=== PATIENT | male | born 1975 | race Two or more races ===

== ENCOUNTER 2016-08-01 13:21 | Inpatient (IN) | payer OTHER ==
[~2016-08-01] VITALS: Ht 175.3 cm; Wt 108.5 kg
[2016-08-01] MEDS ORDERED: SODIUM CHLORIDE 0.9% 1,000 ML IV ONE (13:45)
[2016-08-01] MEDS ORDERED: ONDANSETRON HCL 4 MG/2 ML VIAL IV ONE (13:45)
[2016-08-01] MEDS ORDERED: MORPHINE SULFATE 4 MG/ML SYRG IV ONE (13:45)
[2016-08-01 14:27] LABS: Basophils # (auto) 0 uL; Basophils % (auto) 0.1 % (0.0-2.0); Eosinophils # (auto) 0.1 uL; Eosinophils % (auto) 0.8 % (0.0-7.0); Hematocrit 42.4 % (41.0-53.0); Hemoglobin 14.1 g/dL (13.5-17.5); Lymphocytes # (auto) 1.1 uL; Lymphocytes % (auto) 10.6 % (10.0-50.0); Mean Corpuscular Hemoglobin 27.7 pg (28.0-32.0); Mean Corpuscular Hgb Conc. 33.3 g/dL (32.0-36.0); Mean Platelet Volume 8.4 fL (7.4-10.4); Monocytes # (auto) 0.5 uL; Monocytes % (auto) 5.1 % (0.0-12.0); Neutrophils # (auto) 8.6 uL; Neutrophils % (auto) 83.4 % (37.0-80.0); Platelet Count (auto) 272 10^3/uL (140-450); Red Cell Distribution Width 15.2 % (11.6-16.0); White Blood Cell 10.3 10^3/uL (4.4-10.8)
[2016-08-01 14:41] LABS: INR 0.99 (0.9-1.15); Partial Thromboplastin Time 23.1 sec (22.64-33.71); Prothrombin Time 10.7 sec (9.37-12.3)
[2016-08-01 14:44] LABS: Albumin 3.7 g/dL (3.4-5.0); Alkaline Phosphatase 75 U/L (45-117); Anion Gap 8 (5-15); Aspartate Aminotransferase 12 U/L (15-37); BUN/Creatinine Ratio 12.6; Bilirubin, Total 0.4 mg/dL (0.2-1.0); Blood Urea Nitrogen 13 mg/dL (7-18); Calcium 9.1 mg/dL (8.5-10.1); Carbon Dioxide 27 mmol/L (21-32); Chloride 108 mmol/L (98-107); GFR African American 101 mL/min; GFR Non-African American 84 mL/min; Glucose 106 mg/dL (74-106); Potassium 4.1 mmol/L (3.5-5.1); Sodium 143 mmol/L (136-145); Total Protein 7.6 g/dL (6.4-8.2)
[2016-08-01 14:51] LABS: B-Type Natriuretic Peptide 13.65 pg/mL (0-100)
[2016-08-01 15:46] LABS: Temperature: 23.9 C (20.0-25.0)
[2016-08-01] MEDS ORDERED: ENOXAPARIN SOD 100 MG/1 ML SYRINGE SC ONE (16:15)
[2016-08-01] MEDS ORDERED: IOHEXOL 350 MG/ML 100ML IJ ONE (16:15)
[2016-08-01] MEDS ORDERED: LACTULOSE 20Gm/30ML SOLN PO PRN (16:30)
[2016-08-01] MEDS ORDERED: NITROGLYCERIN 0.4 MG SL TAB SL PRN (16:30)
[2016-08-01] MEDS ORDERED: LORazepam 0.5 MG TAB PO PRN (16:30)
[2016-08-01] MEDS ORDERED: TEMAZEPAM 15 MG CAP PO PRN (16:30)
[2016-08-01] MEDS ORDERED: ACETAMINOPHEN 500 MG TAB PO PRN (16:30)
[2016-08-01] MEDS ORDERED: PROCHLORPERAZINE EDISYLATE 5 MG/ML 2ML VIAL IV PRN (16:30)
[2016-08-01] MEDS ORDERED: MORPHINE SULF INJ 2 MG/ML SYRINGE 1ML IV PRN ×2 (16:30)
[2016-08-01] MEDS ORDERED: PANTOPRAZOLE 40 MG TAB PO ONE (16:45)
[2016-08-01] MEDS ORDERED: HYDR-531 PO (17:53)
[2016-08-01] MEDS ORDERED: PRAZ5CAP PO (17:53)
[2016-08-01] MEDS ORDERED: LAMO25TA2 PO (17:53)
[2016-08-01] MEDS ORDERED: SERT-135 PO (17:53)
[2016-08-01] MEDS ORDERED: LIDO1PAD55 EX (17:53)
[2016-08-01] MEDS ORDERED: LORA-653 PO (17:53)
[2016-08-01] MEDS: HYDROcodone-ACET 5/325MG TAB PO PRN (18:45)
[2016-08-01 22:00] VITALS: BP 127/82
[2016-08-01] MEDS: METOPROLOL TARTRATE 25 MG TAB PO SCH (22:00)
[2016-08-01] MEDS: PRAZOSIN HCL 1 MG CAP PO SCH (22:31)
[2016-08-01] MEDS: lamoTRIgine 25 MG TAB PO SCH (22:32)
[2016-08-01] MEDS: ATORVASTATIN 20 MG TAB PO SCH (22:32)
[2016-08-01] MEDS: SODIUM CHLORIDE 0.9% 1,000 ML IV SCH (22:38)
[2016-08-02 05:30] VITALS: BP 96/59
[2016-08-02] MEDS: SODIUM CHLORIDE 0.9% 1,000 ML IV SCH (05:45)
[2016-08-02 06:33] LABS: Albumin 3.3 g/dL (3.4-5.0); Alkaline Phosphatase 72 U/L (45-117); Anion Gap 8 (5-15); Aspartate Aminotransferase 16 U/L (15-37); BUN/Creatinine Ratio 11.8; Bilirubin, Total 0.3 mg/dL (0.2-1.0); Blood Urea Nitrogen 13 mg/dL (7-18); Calcium 8.4 mg/dL (8.5-10.1); Carbon Dioxide 29 mmol/L (21-32); Chloride 106 mmol/L (98-107); Cholesterol 180 mg/dL (< 200); GFR African American 94 mL/min; GFR Non-African American 78 mL/min; Glucose 128 mg/dL (74-106); HDL Cholesterol 31 mg/dL (40-59); LDL Cholesterol 127 mg/dL (< 100); Potassium 3.8 mmol/L (3.5-5.1); Sodium 143 mmol/L (136-145); Triglycerides 202 mg/dL (< 150)
[2016-08-02] MEDS ORDERED: IODIXANOL 320MG/ML 100ML BTL IV ONE (07:24)
[2016-08-02] MEDS ORDERED: LIDOCAINE 2%HCL (LOCAL ANESTH.) INJ 20ML MDV ONE (07:24)
[2016-08-02 08:00] VITALS: BP 109/57
[2016-08-02 09:00] VITALS: BP 109/57
[2016-08-02] MEDS: METOPROLOL TARTRATE 25 MG TAB PO SCH ×2 (10:00→21:38)
[2016-08-02] MEDS ORDERED: NITROGLYCERIN 0.2MG/HR TOPICAL PATCH TD SCH (10:00)
[2016-08-02] MEDS ORDERED: ENOXAPARIN SOD 40 MG/0.4 ML SYRINGE SC SCH (10:00)
[2016-08-02] MEDS ORDERED: ASPirin 81 mg TAB PO SCH (10:00)
[2016-08-02] MEDS: PANTOPRAZOLE 40 MG TAB PO SCH (10:21)
[2016-08-02 13:00] VITALS: BP 118/70
[2016-08-02] MEDS ORDERED: SERTRALINE HCL 50 MG TAB PO ONE (15:00)
[2016-08-02 18:00] VITALS: BP 122/75
[2016-08-02 21:36] VITALS: BP 118/71
[2016-08-02] MEDS: lamoTRIgine 25 MG TAB PO SCH (21:36)
[2016-08-02] MEDS: ATORVASTATIN 20 MG TAB PO SCH (21:36)
[2016-08-02] MEDS: HYDROcodone-ACET 5/325MG TAB PO PRN (21:37)
[2016-08-02] MEDS: PRAZOSIN HCL 1 MG CAP PO SCH (21:39)
[2016-08-03 04:41] VITALS: BP 111/68
[2016-08-03 08:00] VITALS: BP 118/71
[2016-08-03 09:00] VITALS: BP 106/73
[2016-08-03] MEDS: METOPROLOL TARTRATE 25 MG TAB PO SCH ×2 (10:00→21:48)
[2016-08-03] MEDS: PANTOPRAZOLE 40 MG TAB PO SCH (12:37)
[2016-08-03] MEDS: SERTRALINE HCL 50 MG TAB PO SCH (12:38)
[2016-08-03 13:09] VITALS: BP 110/75
[2016-08-03 17:08] VITALS: BP 120/85
[2016-08-03] MEDS: lamoTRIgine 25 MG TAB PO SCH (21:47)
[2016-08-03] MEDS: ATORVASTATIN 20 MG TAB PO SCH (21:47)
[2016-08-03] MEDS: PRAZOSIN HCL 1 MG CAP PO SCH (21:50)
[2016-08-03 22:00] VITALS: BP 126/79
[2016-08-04 05:40] VITALS: BP 112/69
[2016-08-04 08:00] VITALS: BP 119/77
[2016-08-04 09:05] VITALS: BP 107/67
[2016-08-04] MEDS: METOPROLOL TARTRATE 25 MG TAB PO SCH ×2 (10:00→21:49)
[2016-08-04] MEDS: SERTRALINE HCL 50 MG TAB PO SCH (10:25)
[2016-08-04] MEDS: PANTOPRAZOLE 40 MG TAB PO SCH (10:25)
[2016-08-04 13:07] VITALS: BP 95/60
[2016-08-04 17:00] VITALS: BP 119/85
[2016-08-04] MEDS: lamoTRIgine 25 MG TAB PO SCH (21:48)
[2016-08-04] MEDS: ATORVASTATIN 20 MG TAB PO SCH (21:49)
[2016-08-04 21:50] VITALS: BP 111/78
[2016-08-04] MEDS: PRAZOSIN HCL 1 MG CAP PO SCH (21:50)
[2016-08-05 05:16] VITALS: BP 115/58
[2016-08-05] MEDS ORDERED: IODIXANOL 320MG/ML 100ML BTL IV ONE (07:38)
[2016-08-05] MEDS ORDERED: LIDOCAINE 2%HCL (LOCAL ANESTH.) INJ 20ML MDV ONE (07:38)
[2016-08-05 08:00] VITALS: BP 112/66
[2016-08-05] MEDS ORDERED: SODIUM CHLORIDE 0.9% 1,000 ML IV SCH (08:45)
[2016-08-05 09:00] VITALS: BP 112/66
[2016-08-05] MEDS: SERTRALINE HCL 50 MG TAB PO SCH (10:00)
[2016-08-05] MEDS: METOPROLOL TARTRATE 25 MG TAB PO SCH ×2 (10:00→21:37)
[2016-08-05] MEDS: PANTOPRAZOLE 40 MG TAB PO SCH (10:00)
[2016-08-05] MEDS ORDERED: FLUMAZENIL 0.1 MG/ML INJ 10ML MDV IV ONE (11:30)
[2016-08-05] MEDS ORDERED: NALOXONE HCL 0.4 MG/ML VIAL IV ONE (11:30)
[2016-08-05] MEDS ORDERED: LIDOCAINE VISCOUS 2% 15ML UD MT PRN (11:30)
[2016-08-05] MEDS ORDERED: fentaNYL CITRATE 100 MCG/2 ML VL IV ONE (11:30)
[2016-08-05] MEDS ORDERED: BENZOCAINE (DENTAL) 20 % SPRAY 60ML MT ONE (11:30)
[2016-08-05] MEDS ORDERED: MIDAZOLAM HCL 5 MG/ML-1ML VIAL IV ONE (11:30)
[2016-08-05] MEDS ORDERED: MIDAZOLAM HCL 1MG/1ML-2 ML VIAL ONE (11:35)
[2016-08-05] MEDS: SODIUM CHLORIDE 0.9% 1,000 ML IV SCH ×2 (11:39→21:35)
[2016-08-05] MEDS ORDERED: EPTIFIBATIDE INJ (2MG/ML) 10ML VIAL IV ONE (12:17)
[2016-08-05] MEDS ORDERED: VERAPAMIL 2.5MG/ML INJ 2ML VIAL IV ONE (12:17)
[2016-08-05 14:00] VITALS: BP 114/68
[2016-08-05 17:00] VITALS: BP 105/69
[2016-08-05] MEDS: HYDROcodone-ACET 5/325MG TAB PO PRN (20:15)
[2016-08-05] MEDS: lamoTRIgine 25 MG TAB PO SCH (21:35)
[2016-08-05] MEDS: ATORVASTATIN 20 MG TAB PO SCH (21:36)
[2016-08-05] MEDS: PRAZOSIN HCL 1 MG CAP PO SCH (21:38)
[2016-08-05 21:43] VITALS: BP 120/67
[2016-08-06 04:45] VITALS: BP 108/74
[2016-08-06 08:00] VITALS: BP 108/69
[2016-08-06] MEDS ORDERED: guaiFENesin-DEXTROMETHORPHAN 5ML SYR PO PRN (09:00)
[2016-08-06 09:25] VITALS: BP 108/69
[2016-08-06 09:33] LABS: Basophils # (auto) 0 uL; Basophils % (auto) 0.6 % (0.0-2.0); Eosinophils # (auto) 0.2 uL; Eosinophils % (auto) 2.4 % (0.0-7.0); Hematocrit 45.8 % (41.0-53.0); Hemoglobin 15.4 g/dL (13.5-17.5); Lymphocytes # (auto) 2.1 uL; Lymphocytes % (auto) 23.7 % (10.0-50.0); Mean Corpuscular Hemoglobin 27.8 pg (28.0-32.0); Mean Corpuscular Hgb Conc. 33.6 g/dL (32.0-36.0); Mean Corpuscular Volume 82.8 fL (80.0-100.0); Mean Platelet Volume 8.1 fL (7.4-10.4); Monocytes # (auto) 0.6 uL; Monocytes % (auto) 6.4 % (0.0-12.0); Neutrophils # (auto) 5.8 uL; Neutrophils % (auto) 66.9 % (37.0-80.0); Platelet Count (auto) 286 10^3/uL (140-450); Red Cell Distribution Width 14.8 % (11.6-16.0); White Blood Cell 8.7 10^3/uL (4.4-10.8)
[2016-08-06 09:58] LABS: BUN/Creatinine Ratio 14.7; Potassium 3.7 mmol/L (3.5-5.1)
[2016-08-06] MEDS: SERTRALINE HCL 50 MG TAB PO SCH (10:13)
[2016-08-06] MEDS: PANTOPRAZOLE 40 MG TAB PO SCH (10:13)
[2016-08-06] MEDS: METOPROLOL TARTRATE 25 MG TAB PO SCH ×2 (10:14→21:45)
[2016-08-06 12:30] VITALS: BP 113/71
[2016-08-06 17:20] VITALS: BP 103/60
[2016-08-06] MEDS: PRAZOSIN HCL 1 MG CAP PO SCH (21:44)
[2016-08-06] MEDS: ATORVASTATIN 20 MG TAB PO SCH (21:45)
[2016-08-06] MEDS: lamoTRIgine 25 MG TAB PO SCH (21:45)
[2016-08-06 22:00] VITALS: BP 123/81
[2016-08-07 05:00] VITALS: BP 114/66
[2016-08-07 08:00] VITALS: BP 101/63
[2016-08-07 08:51] VITALS: BP 101/63
[2016-08-07] MEDS: METOPROLOL TARTRATE 25 MG TAB PO SCH (10:00)
[2016-08-07] MEDS: SERTRALINE HCL 50 MG TAB PO SCH (10:30)
[2016-08-07] MEDS: PANTOPRAZOLE 40 MG TAB PO SCH (10:30)
[2016-08-07 12:30] VITALS: BP 109/67
[2016-08-07 17:02] VITALS: BP 109/67
== END 2016-08-07 18:45 | disposition short-term general hospital (02) | DRG 287 ==
LOC: ER 13:31 → TELE 13:32 → TELE-E-ADS 17:30 → TELE-WESTW 19:06
PROVIDERS: ADMIT Internal Medicine; ATTEND Internal Medicine
PROC: B24BZZ4 Ultrasonography of Heart with Aorta, Transesophageal (ICD-10-PCS; principal; 2016-08-05)
PROC: 4A023N7 Measurement of Cardiac Sampling and Pressure, Left Heart, Percutaneous Approach (ICD-10-PCS; 2016-08-05)
PROC: B2111ZZ Fluoroscopy of Multiple Coronary Arteries using Low Osmolar Contrast (ICD-10-PCS; 2016-08-05)
PROC: B2151ZZ Fluoroscopy of Left Heart using Low Osmolar Contrast (ICD-10-PCS; 2016-08-05)
DX: I71.2 Thoracic aortic aneurysm, without rupture (principal); I71.4 Abdominal aortic aneurysm, without rupture; F43.10 Post-traumatic stress disorder, unspecified; E78.5 Hyperlipidemia, unspecified; I35.1 Nonrheumatic aortic (valve) insufficiency; I10 Essential (primary) hypertension; F32.9 Major depressive disorder, single episode, unspecified; F41.9 Anxiety disorder, unspecified; F41.0 Panic disorder [episodic paroxysmal anxiety]; Z83.3 Family history of diabetes mellitus; Z90.49 Acquired absence of other specified parts of digestive tract; Z88.0 Allergy status to penicillin; Z79.899 Other long term (current) drug therapy
CPT/HCPCS: 36415; 71020; 71275; 80048; 80053; 80061; 82550; 83735; 83880; 84443; 84484; 85025; 85379; 85610; 85652; 85730; 86141; 86850; 86900; 86901; 93005; 93306; 93312; 93970; 96361; 96372; 96374; 96375; 99291; J2250; J2405; Q9967

== ENCOUNTER 2017-02-08 19:57 | Emergency (ER) | payer OTHER ==
[~2017-02-08] VITALS: Ht 180.3 cm; Wt 102.1 kg
[~2017-02-08 19:57] MED LIST: HYDR-531 PO; LAMO25TA2 PO; LIDO1PAD55 EX; LORA-653 PO; PRAZ5CAP PO; SERT-135 PO
[2017-02-08] MEDS ORDERED: methylPREDNISolone SOD SUCC 125 MG/2 ML VL IM ONE (20:15)
[2017-02-08] MEDS ORDERED: diphenhdrAMINE HCL 25 MG CAP PO ONE (20:15)
[2017-02-08 20:27] VITALS: BP 118/59
== END 2017-02-08 21:10 | disposition home or self-care (01) ==
LOC: ER 19:57
DX: T78.40XA Allergy, unspecified, initial encounter (principal); R20.0 Anesthesia of skin; Z88.0 Allergy status to penicillin; Z79.899 Other long term (current) drug therapy
CPT/HCPCS: 96372; 99283; J2930